=== PATIENT | male | born 1955 | race Caucasian/White ===

== ENCOUNTER → 2018-10-26 | Outpatient (CLI) | payer MEDICARE ==
--- NOTE | 2018-10-26 10:26 | CT ---
EXAMINATION TYPE: CT ankle RT wo con DATE OF EXAM: 10/26/2018 COMPARISON: None. HISTORY: Pain in right foot, fracture right calcaneus CT DLP: 318 mGycm Automated exposure control for dose reduction was used. FINDINGS: There is comminuted minimally displaced fracture through the calcaneus, fracture lines extends to the calcaneal cuboid joint. Comminuted fracture extends to the inferior and posterior articular surfaces . There is intra-articular extension involving the subtalar joint. There is slight asymmetric medial narrowing on the coronal images. Subtalar joint shows a few tiny ossific fragments for reference jose nal image 79 along the lateral anterior aspect of joint confirmed sagittal image 22. Loss of normal B oehler's angle is present. Several bony fracture fragments in the posterior body are identified due t o comminuted fracture. Incidental small to moderate size inferior calcaneal spur with calcification along the plantar fascia . Distal Achilles tendon is intact. Talus is intact. Ankle mortise symmetry is maintained. Midfoot st ructures are preserved including Lisfranc joints. IMPRESSION: There is severely comminuted acute mildly displaced intra-articular body fracture of the calcaneus as detailed above.
== END | disposition home or self-care (01) ==
LOC: RADCTMAIN 07:48
PROVIDERS: ATTEND Orthopaedic Surgery
DX: S92.061A Displaced intraarticular fracture of right calcaneus, initial encounter for closed fracture (principal)

== ENCOUNTER 2018-10-30 11:33 | Day surgery (SDC) | payer MEDICARE ==
[2018-10-29 14:50] VITALS: BMI 27.1
[2018-10-30] MEDS ORDERED: LIDOCAINE 1% 20 ML VIAL (10MG/ML) FOR IV START INTRADERMA ONE (11:57)
[2018-10-30] MEDS ORDERED: LACTATED RINGERS 1,000 ML IV ONE ×2 (11:58→14:37)
[2018-10-30] MEDS ORDERED: ONDANSETRON 4 MG/2 ML VIAL IVP ONE (12:03)
[2018-10-30] MEDS ORDERED: DEXAMETHASONE SOD PHOS (MDV) 100 MG/10 ML VIAL IVP ONE (12:04)
[2018-10-30] MEDS ORDERED: MIDAZOLAM 2 MG/2 ML VIAL ONE (13:19)
[2018-10-30] MEDS ORDERED: PROPOFOL 10 MG/ML 20 ML VIAL IV ONE (13:19)
--- NOTE | 2018-10-30 15:23 | P.OP ---
Date of Procedure: 10/30/18 Preoperative Diagnosis: Right tongue variant calcaneus fracture Postoperative Diagnosis: Same Procedure(s) Performed: 1. Open reduction internal fixation of right calcaneus fracture 2. Application of short-leg splint by physician, right leg Anesthesia: spinal Surgeon: Jose Peralta Hunter #1: Chayo Valencia Estimated Blood Loss (ml): 5 IV fluids (ml): 1,200 Pathology: none sent Condition: stable Disposition: PACU Indications for Procedure: The patient is very pleasant previously healthy 63-year-old male who sustained an isolated injury to his right heel when he fell off of a ladder on 10/18/2018. He was seen in the emergency department and transferred to our office. At the time of my evaluation the office he had a tongue variant calcaneus fracture with significant displacement. He was placed in a prefabricated calcaneus brace and a computed tomography scan was ordered. Following the computed tomography scan the patient and his followed up in the office. Since there is significant displacement of the joint surface I recommended operative fixation. We discussed different techniques including traditional extensile lateral, sinus tarsi approach, and percutaneous reduction methods. My recommendation was to attempt percutaneous reduction and cannulated screw fixation with the possibility of performing a sinus tarsi approach if needed. The patient and his are agreeable to this. We discussed potential risks and complications of calcaneus fractures including but certainly not limited to risk of anesthesia, superficial infection, deep infection, delayed wound healing, superficial wound necrosis, deep wound necrosis, damage to local blood vessels or nerves, nonunion the fracture site, malunion of the fracture site, loss of fixation, posttraumatic arthritis, DVT, PE, other medical complications, some dramatic hardware, need for further surgery including fusion. The patient and his understand all these are the most common complications there are other less common complications possible. They provided their verbal and written consent to go forward with surgery. Description of Procedure: The patient was identified in preoperative holding and the correct right leg was marked with my initials. I reviewed the consent form with the patient and his . All of their questions were answered. The patient was then brought back to the operating room by anesthesia. While still on his gurney a spinal anesthetic and preoperative antibiotics were administered by anesthesia. The patient was then carefully transferred onto the operating room table. He was positioned on a Band-Aid and then placed in the lateral decubitus position with the unaffected left side down and the affected right leg up. An axillary roll was placed. The beanbag was contoured around the patient's body and then the air was removed forming a tight suction and holding him in the lateral decubitus position. An egg foam elbow was placed under his left leg. A ramp was placed under the right leg to facilitate imaging. A tourniquet was applied to the proximal aspect of the right leg. The right leg was then prepped and draped in standard sterile fashion. Prior to starting surgery timeout was performed identifying the correct patient, operative extremity, and procedure. The patient's leg was then elevated, exsanguinated with an Esmarch bandage, and the tourniquet was inflated to 250 mmHg. I began by attempting percutaneous reduction. A stab incision was made at the posterior tuberosity of the calcaneus laterally. A 2.5 mm drill bit was used to create a path in the posterior lateral tongue fragment. A fully threaded 4.0 mm Schanz pin was then placed by hand into the posterior lateral tongue fragment. I was then able to plantarflex the Schanz pin in the posterior tongue fragment reduced. I then placed a K wire for a cannulated 4.0 mm screw just inferior to the posterior facet across the posterior lateral tongue fragment and into the constant fragment. I then proceeded to place K wires through the posterior lateral aspect of the posterior tongue fragment just inferior to the fracture site and into the anterior process. A final K wire was placed through the inferior posterior tuberosity up into the anterior process. A cannulated partially threaded 4.0 mm screw was placed across the posterior facet portion of the tongue fragment and into the constant fragment generating excellent compression. Fully threaded 4.5 mm screws were placed. All K wires removed and the reduction held. Fluoroscopic images were taken showing excellent reduction of the posterior facet, methodist of Bohler's angle, and minimal hindfoot varus. The wounds were thoroughly irrigated and closed with interrupted 3-0 nylon. A sterile dressing consisting of Betadine soaked Adaptic, 4 x 4, and web roll was applied. The patient was awoken from his anesthetic and transferred to a rargonia, and brought to recovery having tolerated procedure well. [facility]ayo [facility] was required as a skilled assistant strength coach due to the complexity of the case. Plan: The patient is going to be discharged home as an outpatient. He is to make strictly nonweightbearing on his right leg. He'll be given aspirin 325 mg a day for DVT prophylaxis. Follow-up in 2 weeks for splint removal and nonweightbearing x-rays of the calcaneus including axial heel view.
[2018-10-30 15:24] VITALS: TEMP 97.4
[2018-10-30 15:59] VITALS: RESP 18
[2018-10-30] MEDS ORDERED: HYDROcodone/APAP 10-325MG 1 EACH TAB PO ONE (19:46)
[2018-10-30 20:24] VITALS: BP 134/77; PULSE 83
--- NOTE | 2018-10-31 04:31 | XR ---
EXAMINATION TYPE: XR calcaneus 2V RT, FL guidance operating room DATE OF EXAM: 10/30/2018 COMPARISON: NONE HISTORY: 63-year-old male ORIF right calcaneus FINDINGS: 3 images are provided for internal fixation. 3 screws of the calcaneal fracture. FLUOROSCOPY Fluoroscopy time of 1 minute 11 seconds was used during right calcaneal internal fixation. 3 image/s document/s the procedure. IMPRESSION: Fluoroscopy as above.
== END 2018-10-30 20:43 | disposition home or self-care (01) ==
LOC: OR 11:33
PROVIDERS: ATTEND Orthopaedic Surgery
DX: S92.041A Displaced other fracture of tuberosity of right calcaneus, initial encounter for closed fracture (principal); E03.9 Hypothyroidism, unspecified; E78.5 Hyperlipidemia, unspecified; Z88.0 Allergy status to penicillin; Z79.890 Hormone replacement therapy; Z79.899 Other long term (current) drug therapy; Z88.5 Allergy status to narcotic agent; Z79.891 Long term (current) use of opiate analgesic; Z79.1 Long term (current) use of non-steroidal anti-inflammatories (NSAID); W11.XXXA Fall on and from ladder, initial encounter
CPT/HCPCS: 73650; 28415; C1713; J0690; J2405; J1100